=== PATIENT | male | born 1955 | race Caucasian/White ===

== ENCOUNTER 2018-01-18 15:53 | Emergency (ER) | payer OTHER ==
[~2018-01-18] VITALS: Ht 30.5 cm; Wt 2.4 kg
[2018-01-18 15:56] VITALS: Ht 30.5 cm; Wt 2.4 kg
[2018-01-18 17:06] LABS: BASOPHIL % 0.4 % (0-2); PLATELET COUNT 258 x10^3mcL (130-400); RED CELL DISTRIBUTION WIDTH 13.3 % (11.5-14.5)
[2018-01-18 17:19] LABS: ALKALINE PHOSPHATASE 153 U/L (46-116); ALT/SGPT 23 U/L (16-63); AST/SGOT 7 U/L (15-37); BILIRUBIN TOTAL 0.52 mg/dL (0.20-1.00); CALCIUM 8.6 mg/dL (8.5-10.1); CARBON DIOXIDE 29.1 mmol/L (21-32); CHLORIDE SERUM 103 mmol/L (98-107); CREATININE SERUM 0.9 mg/dL (0.7-1.3); GFR1 > 60 mL/min; HDL CHOLESTEROL 51 mg/dL (40-60); LIPASE 182 IU/L (73-393); POTASSIUM SERUM 4.3 mmol/L (3.5-5.1); SODIUM SERUM 138 mmol/L (136-145); TOTAL PROTEIN, SERUM 6.7 g/dL (6.4-8.2)
[2018-01-18 17:21] LABS: ALBUMIN 3.3 g/dL (3.4-5.0); CHOLESTEROL 133 mg/dL (<200); CHOLESTEROL/HDL RATIO 2.6; TRIGLYCERIDES 218 mg/dL (<150)
[2018-01-18 17:22] LABS: GLUCOSE SERUM 454 mg/dL (74-106)
[2018-01-18 17:33] LABS: FREE T4 1.09 ng/dL (0.76-1.46); FREE THYROXINE INDEX 2.8 ug/dL (1.4-4.5); T4(THYROXINE) 8.1 ug/dL (4.7-13.3)
[2018-01-18 17:56] LABS: microscopic required? NO
[2018-01-18 18:11] LABS: urine erythrocyte NEGATIVE (NEGATIVE)
[2018-01-18 18:22] LABS: AMPHETAMINE QUAL UR NONE DETECTED (See below)
[2018-01-18 19:47] VITALS: BP 127/72
== END 2018-01-18 19:48 | disposition home or self-care (01) ==
LOC: ED 15:53
PROVIDERS: Specialist
DX: K40.90 Unilateral inguinal hernia, without obstruction or gangrene, not specified as recurrent (principal); E11.65 Type 2 diabetes mellitus with hyperglycemia
CPT/HCPCS: 82962; 83880; 84439; G0480; J1815; J7030

== ENCOUNTER 2018-04-18 09:01 | Emergency (ER) | payer OTHER ==
[~2018-04-18] VITALS: Ht 165.1 cm; Wt 62.6 kg
[2018-04-18 10:30] VITALS: BP 139/98
== END 2018-04-18 10:30 | disposition home or self-care (01) ==
LOC: ED 09:01
DX: Z46.6 Encounter for fitting and adjustment of urinary device (principal); E11.9 Type 2 diabetes mellitus without complications; Z85.72 Personal history of non-Hodgkin lymphomas; Z98.890 Other specified postprocedural states

== ENCOUNTER 2018-05-14 17:55 | Emergency (ER) | payer OTHER ==
[~2018-05-14] VITALS: Ht 157.5 cm; Wt 64.0 kg
[2018-05-14 18:26] VITALS: Ht 157.5 cm; Wt 64.0 kg
[2018-05-14 20:53] LABS: microscopic required? YES; urine erythrocyte 1+ (NEGATIVE)
[2018-05-14 21:23] VITALS: BP 117/73
== END 2018-05-14 21:23 | disposition home or self-care (01) ==
LOC: ED 17:55
PROVIDERS: Emergency Medicine
DX: N39.0 Urinary tract infection, site not specified (principal); E11.42 Type 2 diabetes mellitus with diabetic polyneuropathy; Z98.890 Other specified postprocedural states

== ENCOUNTER 2018-05-23 11:46 | Emergency (ER) | payer OTHER ==
[~2018-05-23] VITALS: Ht 165.1 cm; Wt 64.4 kg
[2018-05-23 11:53] VITALS: Ht 165.1 cm; Wt 64.4 kg
[2018-05-23 13:06] VITALS: BP 152/90
== END 2018-05-23 13:43 | disposition home or self-care (01) ==
LOC: ED 11:46
DX: N40.0 Benign prostatic hyperplasia without lower urinary tract symptoms (principal); E11.42 Type 2 diabetes mellitus with diabetic polyneuropathy; K40.90 Unilateral inguinal hernia, without obstruction or gangrene, not specified as recurrent; Z98.890 Other specified postprocedural states